=== PATIENT | male | born 1990 | race Caucasian/White ===

== ENCOUNTER 2020-06-30 06:48 | Outpatient (NON) | payer OTHER, SELFPAY ==
[2020-06-30 19:05] LABS: SARS-CoV-2 RNA PCR Negative
== END 2020-06-30 06:49 ==
PROVIDERS: PCP Family Medicine Adolescent Medicine; Visit Provider Family Medicine Adolescent Medicine
DX: Z20.828 Contact with and (suspected) exposure to other viral communicable diseases (principal); R09.89 Other specified symptoms and signs involving the circulatory and respiratory systems
CPT/HCPCS: 87635; C9803; U0003

== ENCOUNTER 2021-08-15 23:53 | Observation (INO) | payer OTHER, SELFPAY ==
--- NOTE | ~2021-08-15 | XR_ITS ---
EXAMINATION: XR chest 1V portable DATE: 08/16/2021 00:30 INDICATION: Shortness of breath and cough. COVID-19 positive. TECHNIQUE: A single frontal view of the chest was obtained. COMPARISON: Chest CT 08/16/2021 FINDINGS: There are patchy airspace opacities in the lungs bilaterally, worst in right upper lobe. No pleural effusion or pneumothorax. The heart size is normal. IMPRESSION: 1. Diffuse lung disease, worst in right upper lobe, consistent with COVID-19 pneumonia. Reviewed, dictated and finalized at location A. N PLANNER IMPRESSION: 1. Diffuse lung disease, worst in right upper lobe, consistent with COVID-19 pn eumonia.
--- NOTE | ~2021-08-15 | CT_ITS ---
EXAMINATION: CTA chest PE protocol DATE: 08/16/2021 02:07 INDICATION: Right upper lobe pneumonia. TECHNIQUE: Computed tomography angiography (CTA) of the chest was performed with 100 mL Omnipaque-350 intravenous contrast timed to evaluate the pulmonary arteries. Coronal maximum intensity projection 3D-reconstructions were created by the technologist. Automated exposure control and iterative reconst ruction technique were employed. The dose-length product was 502.59 mGy-cm. COMPARISON: Chest single view 08/16/2021 FINDINGS: There are patchy airspace opacities, groundglass opacities, crazy paving with air bronchogr ams involving all lobes, worst in right upper lobe. No pleural effusion. The heart size is normal. No pericardial effusion. There is no pulmonary embolus. There is mild splenomegaly. There is focal stea tosis in the liver adjacent to the falciform ligament. There is mild thoracic spondylosis. IMPRESSION: 1. No pulmonary embolism. Sensitivity is moderately decreased by motion artifact. 2. Diffuse lung disease, consistent with COVID-19 pneumonia. 3. Mild splenomegaly. Reviewed, dictated and finalized at location A. E DOG TRAINER IMPRESSION: 1. No pulmonary embolism. Sensitivity is moderately decreased by motion artifac t. 2. Diffuse lung disease, consistent with COVID-19 pneumonia. 3. Mild splenomegaly.
[2021-08-16] VITALS (26 sets, daily range): BP systolic 129–148; BP diastolic 78–104; PULSE 98–130; RESP 18–44; TEMP 36.3–38.3; O2SAT 94–99
[2021-08-16] MEDS: SODIUM CHLORIDE 0.9% IV 1,000 ML 999 ML IV CONT (00:42)
[2021-08-16] MEDS: DEXAMETHASONE SOD PHOS INJ 4 MG/ML VIAL 6 MG IV PUSH (00:43)
[2021-08-16 01:07] LABS: Basophils Percent Auto 0.2 % (0.2-1.2); Hematocrit 37.5 % (42.0-52.0); Hemoglobin 13.6 g/dL (14.0-18.0); Immature Granulocyte Absolute 0.07 K/mm3 (0.00-0.031); Immature Granulocyte Percent A 1.2 % (0-0.5); Lymphocytes Percent Auto 5.2 % (18.3-44.2); Mean Corpuscular HGB Conc 36.3 g/dl (32-36); Mean Corpuscular Hemoglobin 31.5 pg (26-34); Mean Corpuscular Volume 86.8 fl (80-100); Monocytes Absolute Auto 0.1 K/mm3 (0.1-0.6); Monocytes Percent Auto 1.7 % (2.6-8.5); Neutrophils Absolute Auto 5.3 K/mm3 (1.3-6.7); Neutrophils Percent Auto 91.7 % (45.5-73.1); Platelet Count Result 144 k/mm3 (150-375); Red Blood Count 4.32 M/mm3 (4.6-6.20); Red Cell Distribution Width 12.6 % (11.5-14.5); White Blood Count 5.8 K/mm3 (4.5-10.0)
[2021-08-16 01:16] LABS: Alanine Aminotransferase 97 U/L (4-50); Albumin Level 4.2 g/dL (3.5-5.1); Alkaline Phosphatase 82 U/L (38-126); Anion Gap 11 mmol/L (8-16); Aspartate Amino Transferase 104 U/L (17-59); Bilirubin,Total 0.6 mg/dL (0.2-1.3); Blood Urea Nitrogen 12 mg/dL (9-20); Calcium 8.4 mg/dL (8.4-10.2); Carbon Dioxide 24 mmol/L (22-30); Chloride 98 mmol/L (98-107); Estimated CRCL calculation 94 ml/min; Estimated Glomerular Filt Rate > 60; Glucose 118 mg/dL (65-110); Potassium 3.4 mmol/L (3.4-5.0); Sodium 133 mmol/L (137-145)
[2021-08-16 01:21] LABS: Lactic Acid Reflex 1.3 mmol/L (0.7-2.1)
--- NOTE | 2021-08-16 01:29 | ED.URI ---
HPI - URI/Sore Throat General Chief Complaint: Upper Respiratory Infection <MD Ryan Bates Last Filed: 08/16/21 01:35> Stated Complaint: cough, weakness <MD Ryan Bates Last Filed: 08/16/21 01:35> Time Seen by Provider: 08/16/21 00:12 <MD Ryan Bates Last Filed: 08/16/21 01:35> Source: patient <Skip Laurent MD - Last Filed: 08/16/21 01:35> Mode of arrival: ambulatory <MD Ryan Bates Last Filed: 08/16/21 01:35> Limitations: no limitations <MD Ryan Bates Last Filed: 08/16/21 01:35> History of Present Illness HPI Narrative: 30-year-old with no major medical problems here with complaints of cough shortness of breath, chest pain and fever for past 3 days. Patient states that he tested positive for Covid at home. He is not vaccinated against Covid <Skip Laurent MD - Last Filed: 08/16/21 01:35> MD elicited complaint: fever and nasal congestion <Skip Laurent MD - Last Filed: 08/16/21 01:35> Onset (ago): day(s) (3) <Skip Laurent MD - Last Filed: 08/16/21 01:35> Consistency: constant <MD Ryan Bates Last Filed: 08/16/21 01:35> Severity: moderate <MD Ryan Bates Last Filed: 08/16/21 01:35> Exacerbating factors: nothing <MD Ryan Bates Last Filed: 08/16/21 01:35> Relieving factors: nothing <MD Ryan Bates Last Filed: 08/16/21 01:35> Related Data Home Medications: Home Medications Medication Instructions Recorded Confirmed No Home Medications 08/16/21 <MD Ryan Bates Last Filed: 08/16/21 01:35> Allergies/Adverse Reactions: Allergies Allergy/AdvReac Type Severity Reaction Status Date / Time No Known Allergies Allergy Mild Verified 08/16/21 01:50 <MD Ryan Bates Last Filed: 08/16/21 01:35> Review of Systems Review of Systems: All systems reviewed & are unremarkable except as noted in HPI and below <Skip Laurent MD - Last Filed: 08/16/21 01:35> Constitutional: Constitutional: Reports no additional constitutional complaints <Skip Laurent MD - Last Filed: 08/16/21 01:35> Eyes: Eyes: Reports no additional eye complaints <Skip Laurent MD - Last Filed: 08/16/21 01:35> Cardiovascular: Cardiovascular: Reports no additional cardiovascular complaints <Skip Laurent MD - Last Filed: 08/16/21 01:35> Respiratory: Respiratory: Reports as per HPI <Skip Laurent MD - Last Filed: 08/16/21 01:35> Gastrointestinal: Gastrointestinal: Reports no additional gastrointestinal complaints <Skip Laurent MD - Last Filed: 08/16/21 01:35> Genitourinary: Genitourinary: Reports no additional male genitourinary complaints <Skip Laurent MD - Last Filed: 08/16/21 01:35> Musculoskeletal: Musculoskeletal: Reports no additional musculoskeletal complaints <Skip Laurent MD - Last Filed: 08/16/21 01:35> Exam Narrative: GENERAL: ill-appearing, well-nourished, and in no acute distress. HEAD: Normocephalic, atraumatic. EYES: PERRLA and EOMI. NECK: Supple. CHEST: Clear to auscultation. No respiratory distress. HEART: Tachycardic. No murmur heard. Normal peripheral pulses. ABDOMEN: Soft, nontender, nondistended, normal active bowel sounds. EXTREMITIES: Normal range of motion. No edema. SKIN: Warm, dry, no rash. NEURO: No focal deficits. Alert and oriented x3. PSYCH: Normal mood and affect. <Skip Laurent MD - Last Filed: 08/16/21 01:35> Course Course Emergency Course: Patient still remains tachycardic however now after 1 L of IV fluids, reviewed x-ray and lab work with the patient will admit him to the hospital as he still tach cardiac and his respiratory rate is 33. <Skip Laurent MD - Last Filed: 08/16/21 01:35> Vital Signs Vital signs: Vital Signs Temperature 36.9 C 08/16/21 00:00 Pulse Rate 109 H 08/16/21 00:00 Respiratory Rate 18 08/16/21 00:00 Blood Pressure 129/78 08/16/21 00:00 Pulse Oximetry 95 12/0
--- NOTE | 2021-08-16 01:49 | PC.NURSE ---
blood cultures drawn by tech at this time
[2021-08-16] MEDS: SODIUM CHLORIDE 0.9% IV 1,000 ML 125 ML IV CONT ×2 (01:50→09:56)
[2021-08-16] MEDS: ACETAMINOPHEN 500 MG TABLET 1000 MG PO (02:20)
--- NOTE | 2021-08-16 02:41 | PC.NURSE ---
Report received and care of pt assumed at this time.
--- NOTE | 2021-08-16 08:26 | ADMGEN ---
This patient, Yan Vázquez, was admitted to Virtual Bed 3rd Floor-2. Patient/family oriented to hospital policies and general routines including ID bracelet, bed and alarms, visiting hours, pain management, procedures, bathroom and other care routines, personal items, smoking policy, room service/diet, and visiting hours. Information on how to activate the Rapid Response Team has been discussed. Patient/Family are encouraged to report perceived risks to care and to ask questions if they do not understand what they are told or what they should do. Admission process done in ED with pt. Cooperated with all questions. Belonging, wallet and phone, will be kept on person. PT comfortable, no pain reported.
[2021-08-16] MEDS: ACETAMINOPHEN 325 MG TABLET 650 MG PO (11:05)
--- NOTE | 2021-08-16 12:43 | PM.SD2 ---
Same Day Admit/Disch: HPI History of Present Illness Chief complaint: COVID +, Right Lobe Pneumonia Narrative: Yan Vázquez is a 30 year old male with no medical problems, started having problems on Sunday with fever and cough and chest pain. Pt did home kit on Sunday and it was positive pt came into ED yesterday Sunday for full evaluation. Pt lives with and children.Pt works in factory. Pt is not vaccinated. Since admission pt has not needed oxygen. Pt is wanting to go home. CXR AND CT CHEST both show pneumonia. Covid test is positive. [facility] Family History Family History Grandparent Diabetes mellitus Father Parkinson disease Social History Social History Smoking status: Never smoker Second hand tobacco smoke exposure: No Alcohol intake: never Substance use type: marijuana Other substance usage details: on a rare occassion Spiritual care concerns: No Same Day Admit/Disch: Med Pre-admit Medications Home Medications Medication Instructions Recorded Confirmed Type No Home Medications 08/16/21 History Exam Const: General: tired appearing and other (persistent cough ) HENMT: Head: normocephalic Eyes: General: appearance normal, both eyes and all related structures Pupils: Equal, round and reactive pupils present Neck: Neck: supple Chest: Chest palpation & inspection: normal inspection of the chest Resp: Effort & Inspection: normal respiratory effort Auscultation: clear to auscultation bilaterally Cardio: Jugular venous distension: no JVD Rhythm: regular rhythm Heart sounds: S1 normal heart sound present and S2 normal heart sound present GI: Inspection: normal to inspection GI Palp: No abdominal tenderness, Yes Soft to palpation and No Tenderness to palpation present (GI) Auscultation: normal bowel sounds Skin: General skin exam: normal color and dry skin Neuro: Cranial nerves: Yes CN's II-XII intact bilaterally and Yes Equal, round and reactive pupils present Cognition (Neuro): normal cognition Speech: normal speech Motor exam (neuro): 5/5 motor strength present throughout Extrem: General: normal to inspection Psych: Appearance: grossly normal Mental Status: mental status grossly normal DS: Data Data Completed and Pending Labs on day of discharge: Labs from last 24 hours 1208/16/21 08/16/21 02:17 00:46 00:46 WBC RBC Hgb Hct MCV MCH MCHC RDW Plt Count MPV Immature Gran % (Auto) Neut % (Auto) Lymph % (Auto) Mcmullen % (Auto) Eos % (Auto) Baso % (Auto) Lymph # (Auto) Mcmullen # (Auto) Eos # (Auto) Baso # (Auto) Abs Immat Gran (auto) Absolute Neuts (auto) Absolute Nucleated RBC Nucleated RBC % Sodium 133 L Potassium 3.4 Chloride 98 Carbon Dioxide 24 Anion Gap 11 BUN 12 Creatinine 1.10 Estim Creat Clear Calc 94 Estimated GFR > 60 Glucose 118 H Lactic Acid 1.3 Calcium 8.4 Total Bilirubin 0.6 AST 104 H ALT 97 H Alkaline Phosphatase 82 Total Protein 8.0 Albumin 4.2 SARS-CoV-2 RNA (RT-PCR) Pending 08/16/21 00:46 WBC 5.8 RBC 4.32 L Hgb 13.6 L Hct 37.5 L MCV 86.8 MCH 31.5 MCHC 36.3 H RDW 12.6 Plt Count 144 L MPV 10.0 Immature Gran % (Auto) 1.2 H Neut % (Auto) 91.7 H Lymph % (Auto) 5.2 L Mcmullen % (Auto) 1.7 L Eos % (Auto) 0.0 Baso % (Auto) 0.2 Lymph # (Auto) 0.30 L Mcmullen # (Auto) 0.1 Eos # (Auto) 0.0 Baso # (Auto) 0.0 Abs Immat Gran (auto) 0.07 H Absolute Neuts (auto) 5.3 Absolute Nucleated RBC 0.0 Nucleated RBC % 0.0 Sodium Potassium Chloride Carbon Dioxide Anion Gap BUN Creatinine Estim Creat Clear Calc Estimated GFR Glucose Lactic Acid Calcium Total Bilirubin AST ALT Alkaline Phosphatase Total Protein Albumin SARS-CoV-2 RNA (RT-PCR)
[2021-08-16 20:28] LABS: SARS-CoV-2 RNA PCR Positive
== END 2021-08-16 14:20 | disposition home or self-care (01) ==
LOC: ANHED 08-16 02:09 → ANH3MEDSUR 08-16 10:52 → ANH2MED 08-18 10:22
PROVIDERS: Family Medicine; Admitting Provider Internal Medicine; Emergency Provider Emergency Medicine; PCP Family Medicine Adolescent Medicine; Visit Provider Family Medicine
DX: U07.1 COVID-19 (principal); J12.82 Pneumonia due to coronavirus disease 2019; Z28.3 Underimmunization status
CPT/HCPCS: 36415; 71045; 71275; 80053; 83605; 85025; 87040; 96361; 96365; 96366; 96374; 96375; 99285; A9270; C9803; G0378; J1100; J1956; J7030; Q9967; U0003; U0005

== ENCOUNTER 2021-09-22 14:13 | Outpatient (CLI) | payer OTHER, SELFPAY ==
--- NOTE | ~2021-09-22 | XR_ITS ---
XR chest 2V DATE: 09/22/2021 14:24 INDICATION: Covid 19 pneumonia TECHNIQUE: 2 views COMPARISON: 08/16/2021 CTA chest 08/16/2021 portable AP chest FINDINGS: There is mild residual infiltrate, atelectasis and/or scarring in the mid and lower lung zo alyson bilaterally, right greater than left, improved significantly, particularly at the right upper lob e, since 08/16/2021 Normal heart size. No hilar or mediastinal enlargement. No pleural effusion or pulmonary vascular con gestion or pneumothorax. IMPRESSION: Mild residual bilateral pulmonary infiltrate, atelectasis and/or scarring, right greater than left Reviewed, dictated and finalized at location J. SCHOOL COMBINATION TEACHER IMPRESSION: Mild residual bilateral pulmonary infiltrate, atelectasis and/or sc arring, right greater than left
== END 2021-09-22 14:14 ==
LOC: MICIMG 14:13
PROVIDERS: PCP Family Medicine Adolescent Medicine; Visit Provider Physician Assistant
DX: Z86.16 Personal history of COVID-19 (principal); R91.8 Other nonspecific abnormal finding of lung field
CPT/HCPCS: 71046

== ENCOUNTER 2021-11-23 14:39 | Outpatient (CLI) | payer BC, SELFPAY ==
--- NOTE | 2021-11-29 11:57 | WPDHOLTEREM ---
Holter/Event Monitor Holter/Event Monitor Date of procedure: 11/23/21 Holter/Event Procedure: 24 Hr Holter Monitor Indications: Palpitations Conclusion: 1. 24 hour holter monitor on 11/23/21. 2. Underlying rhythm is sinus rhythm. HR range 50-150 bpm; average HR 83 bpm. 3. No premature supraventricular complex. No supraventricular tachycardia. 4. There is one premature ventricular complex. No ventricular tachycardia. 5. No sinoatrial or atrioventricular blocks. No significant pauses greater than 2 seconds. 6. No symptoms available for correlation.
== END 2021-11-23 14:40 | disposition home or self-care (01) ==
LOC: ANHCARD 14:45
PROVIDERS: PCP Family Medicine Adolescent Medicine; Visit Provider Physician Assistant
DX: R00.2 Palpitations (principal); Z86.16 Personal history of COVID-19
CPT/HCPCS: 93225; 93226

== ENCOUNTER → 2022-02-09 16:09 | Outpatient (CLI) | payer BC, SELFPAY ==
--- NOTE | ~2022-02-09 | XR_ITS ---
XR chest 2V DATE: 02/09/2022 16:20 INDICATION: Shortness of breath TECHNIQUE: 2 views COMPARISON: 09/22/2021 2 view chest FINDINGS: Normal heart size. No hilar or mediastinal enlargement. No pulmonary infiltrate or consolid ation, pleural effusion or pulmonary vascular congestion or pneumothorax. IMPRESSION: No active cardiopulmonary disease Reviewed, dictated and finalized at location A.
== END ==
PROVIDERS: PCP Family Medicine Adolescent Medicine; Visit Provider Physician Assistant
DX: R06.02 Shortness of breath (principal)
CPT/HCPCS: 71046

== ENCOUNTER 2023-04-30 13:02 | Outpatient (CLI) | payer BC, SELFPAY ==
[2023-04-30 14:21] LABS: Hemoglobin 11.2 g/dL (14.0-18.0); Mean Corpuscular HGB Conc 33.9 g/dl (32-36); Mean Corpuscular Hemoglobin 30.1 pg (26-34); Mean Corpuscular Volume 88.7 fl (80-100); Mean Platelet Volume 10.6 fl (7.4-10.4); Platelet Count Result 302 k/mm3 (150-375); Red Blood Count 3.72 M/mm3 (4.6-6.20); Red Cell Distribution Width 12.5 % (11.5-14.5); White Blood Count 8.1 K/mm3 (4.5-10.0)
== END 2023-04-30 13:03 | disposition home or self-care (01) ==
PROVIDERS: PCP Family Medicine Adolescent Medicine; Visit Provider Family Medicine Adolescent Medicine
DX: K92.1 Melena (principal)
CPT/HCPCS: 36415; 85027

== ENCOUNTER 2023-05-02 08:05 | Inpatient (IN) | payer BC, SELFPAY ==
[2023-05-02] VITALS (12 sets, daily range): BP systolic 131–155; BP diastolic 86–98; PULSE 88–130; RESP 18–21; TEMP 36.4–36.8; O2SAT 100; BMI 26.0
--- NOTE | ~2023-05-02 | NM_ITS ---
EXAMINATION: NM [facility] DATE: 05/04/2023 12:14 INDICATION: Calf and S1 roots. TECHNIQUE: 16.6 mCi Tc 99m pertechnetate was administered intravenously. Scintigraphic images of the abdomen were obtained for one hour. COMPARISON: None. FINDINGS: There is no ectopic gastric mucosa to suggest a Meckel's diverticulum. IMPRESSION: 1. No evidence of a Meckel's diverticulum. Reviewed, dictated and finalized at location A.
[2023-05-02 08:28] LABS: Basophils Percent Auto 0.6 % (0.2-1.2); Eosinophils Percent Auto 0.6 % (0-4.4); Hematocrit 29.8 % (42.0-52.0); Hemoglobin 10.2 g/dL (14.0-18.0); Immature Granulocyte Absolute 0.04 K/mm3 (0.00-0.031); Immature Granulocyte Percent A 0.6 % (0-0.5); Lymphocytes Absolute Auto 1.25 K/mm3 (0.9-3.2); Lymphocytes Percent Auto 19.1 % (18.3-44.2); Mean Corpuscular HGB Conc 34.2 g/dl (32-36); Mean Corpuscular Hemoglobin 30.6 pg (26-34); Mean Corpuscular Volume 89.5 fl (80-100); Mean Platelet Volume 10.2 fl (7.4-10.4); Monocytes Absolute Auto 0.4 K/mm3 (0.1-0.6); Monocytes Percent Auto 5.5 % (2.6-8.5); Neutrophils Absolute Auto 4.8 K/mm3 (1.3-6.7); Neutrophils Percent Auto 73.6 % (45.5-73.1); Platelet Count Result 274 k/mm3 (150-375); Red Blood Count 3.33 M/mm3 (4.6-6.20); Red Cell Distribution Width 12.8 % (11.5-14.5); White Blood Count 6.6 K/mm3 (4.5-10.0)
[2023-05-02 08:37] LABS: Alanine Aminotransferase 26 U/L (6-50); Albumin Level 4.4 g/dL (3.5-5.1); Alkaline Phosphatase 67 U/L (38-126); Anion Gap 9 mmol/L (8-16); Aspartate Amino Transferase 32 U/L (17-59); Bilirubin,Total 0.5 mg/dL (0.2-1.3); Blood Urea Nitrogen 16 mg/dL (9-20); Calcium 8.8 mg/dL (8.4-10.2); Carbon Dioxide 22 mmol/L (22-30); Chloride 103 mmol/L (98-107); Estimated CRCL calculation 80 ml/min; Estimated Glomerular Filt Rate > 60; Glucose 90 mg/dL (65-110); Potassium 4.4 mmol/L (3.4-5.0); Sodium 134 mmol/L (137-145)
--- NOTE | 2023-05-02 08:42 | ED.GENADULT ---
HPI - General Adult General Chief complaint: GI Bleed Stated complaint: bloody stools Time Seen by Provider: 05/02/23 08:14 History of Present Illness HPI narrative: Patient is a 32-year-old male who presents ER with rectal bleeding. Ongoing for 5 days. Has history of infectious colitis so his PCP put him on ciprofloxacin. Patient reports continued bloody bowel movements since then. At onset patient did have what he felt like was a fever but has not had any since then. He is not on any blood thinners. No history of Crohn's disease or ulcerative colitis. He has no history of diverticula. He is not having any abdominal pain just cramping when he has bowel movement. Related Data Allergies Allergy/AdvReac Type Severity Reaction Status Date / Time doxycycline Allergy Mild acid reflux Verified 05/02/23 08:27 Review of Systems Review of Systems: All systems reviewed & are unremarkable except as noted in HPI and below Constitutional: Constitutional: Denies chills, Denies fatigue and Reports fever(s) Cardiovascular: Cardiovascular: Denies chest pain, Denies rapid heart rate and Denies radiating jaw, neck or arm pain Respiratory: Respiratory: Denies cough, Denies dyspnea and Denies wheezing Gastrointestinal: Gastrointestinal: Denies abdominal pain, Reports diarrhea, Denies nausea and Denies vomiting Comments: Positive for rectal bleeding Psychiatric: Psychiatric: Reports anxiety PMFSH Past Medical History Medical History (Updated 05/02/23 @ 09:49 by Toni Azevedo MD) History of fracture of clavicle PTSD (post-traumatic stress disorder) Surgical History Surgical History (Updated 05/02/23 @ 08:43 by Toni Azevedo MD) No history of previous surgery Family History Family History Grandparent Diabetes mellitus Cerebrovascular accident Father , Due to Covid Pneumonia Parkinson disease Pneumonia due to COVID-19 virus Social History Social History Smoking status: Never smoker Second hand tobacco smoke exposure: No Alcohol intake: never Substance use: never Other substance usage details: on a rare occassion Lack of Transportation: No Lack of Food: Never True Current Housing: I Have Housing Concerned About Future Housing: No Difficulty Paying Gas/Electric Bills: No Difficulty Paying for Meds: No Currently Unemployed: No Education: High School Diploma/GED Difficulty w/ Childcare or Family Care: No Living arrangements: with family Occupation/Education: occupation Gender identity (if verbalized by the patient): Male Sexual Orientation (if Verbalized by the Patient): Straight or Heterosexual Spiritual care concerns: No Agree to blood products: Yes Exam Narrative: GENERAL: Well-appearing, well-nourished, and in no acute distress. HEAD: Normocephalic, atraumatic. EYES: PERRL and EOMI. ENT: Mucous membranes moist. CHEST: Clear to auscultation. No respiratory distress. HEART: Tachycardic and regular.. Normal peripheral pulses. ABDOMEN: Soft, nontender, nondistended. Digital rectal exam with gross blood. No external hemorrhoids. EXTREMITIES: Normal range of motion. No edema. SKIN: Warm, dry, no rash. NEURO: Alert and oriented x3. PSYCH: Normal mood and affect. Course Vital Signs Vital signs: Vital Signs Temperature 97.5 F L 05/02/23 08:07 Pulse Rate 110 H 05/02/23 08:07 Respiratory Rate 18 05/02/23 08:07 Blood Pressure 150/98 H 05/02/23 08:07 Pulse Oximetry 100 05/02/23 08:07 Oxygen Delivery Room Air 05/02/23 08:07 Temperature 97.5 F L 05/02/23 08:07 Pulse Rate 93 05/02/23 09:13 Respiratory Rate 21 H 05/02/23 09:13 Blood Pressure 136/90 05/02/23 09:13 Pulse Oximetry 100 05/02/23 09:13 Oxygen Delivery Room Air 05/02/23 08:07 Medical Decision Making MDM Narrative Medical d
[2023-05-02] MEDS: SODIUM CHLORIDE 0.9% IV 1,000 ML 999 ML IV CONT (08:50)
[2023-05-02 08:55] LABS: Partial Thromboplastin Time 26.5 SECONDS (22.3-36.8)
[2023-05-02 09:11] LABS: Prothrombin Time 13.6 Seconds (11.1-14.7)
[2023-05-02] MEDS: PANTOPRAZOLE SODIUM IV 40 MG VIAL IV PUSH (09:59)
--- NOTE | 2023-05-02 10:42 | ADMGEN ---
This patient, Yan Vázquez, was admitted to [address] [place] [address] Room 330-01. Patient/family oriented to hospital policies and general routines including ID bracelet, bed and alarms, visiting hours, pain management, procedures, bathroom and other care routines, personal items, smoking policy, room service/diet, and visiting hours. Information on how to activate the Rapid Response Team has been discussed. Patient/Family are encouraged to report perceived risks to care and to ask questions if they do not understand what they are told or what they should do.
--- NOTE | 2023-05-02 12:28 | WPDGICN ---
Assessment and Plan Assessment and plan (1) GI bleed: Code(s): K92.2 - Gastrointestinal hemorrhage, unspecified Status: Acute Assessment and Plan: He has been passing blood for 5 days now. It is sometimes bright red other times darker. It has never been black or tarry. (2) Anemia due to blood loss, acute: Code(s): D62 - Acute posthemorrhagic anemia Status: Acute Assessment and Plan: Hemoglobin which was 14.9 last August and 13.4 in February is now down to 10.2. He was asking about blood transfusion. I told that we will watch his blood counts but at this point it does not appear that he will need transfusion. (3) Epigastric pain: Code(s): R10.13 - Epigastric pain Status: Acute Assessment and Plan: He had been having pain in the upper abdomen towards the left a while back. At that time he had been using anti-inflammatory medications. It was thought that he might have an ulcer but he did not have it investigated. Plan Will schedule for EGD and colonoscopy to be done tomorrow. GI Consult Note Consult date/time: 05/02/23 12:28 HPI: Yan Vázquez is a 32 year old male Who presented to the emergency room with complaints of bloody diarrhea beginning last week. On he felt nauseated for a while. He was better on Sunday but by evening of Sunday he was having cramping and then had a bowel movement which was bloody. This was preceded by having a sensation of being lightheaded and diaphoretic. Since then his bowel movements have all been bloody some darker than others but generally bright red. He is not having abdominal pain. He has not had a fever. His primary care physician started him on Cipro thinking this could be infection. He had not been traveling lately. He had not been on antibiotics. He occasionally gets a twinge of discomfort in the right lower quadrant. His appetite is good. This week he stayed on a liquid diet, being afraid to eat more than that. His hemoglobin was up to 14.9 last year and is now down to 10.2 Review of Systems Review of Systems: All systems reviewed & are unremarkable except as noted in HPI and below PMFSH Past Medical History Medical History History of fracture of clavicle PTSD (post-traumatic stress disorder) Surgical History Surgical History No history of previous surgery Family History Family History Grandparent Diabetes mellitus Cerebrovascular accident Father , Due to Covid Pneumonia Parkinson disease Pneumonia due to COVID-19 virus Social History Social History Years smoked: 1 Smoking status: Former smoker Second hand tobacco smoke exposure: No Alcohol intake: never Substance use: former Substance use type: marijuana Other substance usage details: on a rare occassion Last use: 04/23/2023 Lack of Transportation: No Lack of Food: Never True Current Housing: I Have Housing Concerned About Future Housing: No Difficulty Paying Gas/Electric Bills: No Difficulty Paying for Meds: No Currently Unemployed: No Education: High School Diploma/GED Difficulty w/ Childcare or Family Care: No Living arrangements: with family Occupation/Education: occupation Gender identity (if verbalized by the patient): Male Sexual Orientation (if Verbalized by the Patient): Straight or Heterosexual Spiritual care concerns: No Agree to blood products: Yes Meds Home Medications and Allergies Home Medications Medication Instructions Recorded Confirmed Type alprazolam 0.5 mg tablet 0.5 mg PO TID PRN anxiety #30 tabs 03/12/23 05/02/23 Rx ciprofloxacin HCl 500 mg tablet 500 mg PO BID #14 tabs 04/27/23 05/02/23 Rx Allergies Allergy/AdvReac Type Severity React
--- NOTE | 2023-05-02 12:35 | PM.IMHP ---
H&P: HPI History of Present Illness Date/Time: 05/02/23 12:35 Chief Complaint: Gl bleed Narrative: This is a 32 year old male patient that has had no past medical history. He stated that he has had a hx of anxiety and that he feel this is pretty much under control. The patient stated that he has been having this problem for at least 5 days. the patient was treated with infectious colitis with cipro. He has no hx of crohns disease. He showed me a picture of his maroon color. He denies any nausea at this point. The patient is not on any blood thinners. He is not having any abdominal pain or cramping at this time. H&H is 10.2 and 29.8. GI has been consulted. It was given IV fluids and pantoprazole. The patient is being admitted for observation status on the service of 05/02/2023 Review of Systems Review of Systems: All systems reviewed & are unremarkable except as noted in HPI and below Constitutional: Constitutional: Reports as per HPI and Reports no additional constitutional complaints Eyes: Eyes: Reports as per HPI and Reports no additional eye complaints ENT: Reports system reviewed and no additional complaints, except as documented and Reports Normal hearing present Cardiovascular: Cardiovascular: Reports no additional cardiovascular complaints Respiratory: Respiratory: Reports no additional respiratory complaints and Reports no additional respiratory complaints Gastrointestinal: Gastrointestinal: Reports as per HPI and Reports no additional gastrointestinal complaints Musculoskeletal: Musculoskeletal: Reports no additional musculoskeletal complaints Integumentary/Breasts: Skin/Breast: Reports system reviewed and no additional complaints, except as docu and Reports as per HPI Neurologic: Reports system reviewed and no additional complaints, except as documented, Reports as per HPI and Reports Normal hearing present Psychiatric: Psychiatric: Reports no additional psychiatric complaints and Reports as per HPI Endocrine: Endocrine: Reports no additional endocrine complaints Hematologic/Lymphatic: Hematologic/Lymphatic: Reports no additional hematologic/lymphatic complaints Allergic/Immunologic: Allergic/Immunologic: Reports no additional allergic/immunologic complaints [facility] Past Medical History Medical History History of fracture of clavicle PTSD (post-traumatic stress disorder) Surgical History Surgical History No history of previous surgery Family History Family History Grandparent Diabetes mellitus Cerebrovascular accident Father , Due to Covid Pneumonia Parkinson disease Pneumonia due to COVID-19 virus Social History Social History Years smoked: 1 Smoking status: Former smoker Second hand tobacco smoke exposure: No Alcohol intake: never Substance use: former Substance use type: marijuana Other substance usage details: on a rare occassion Last use: 04/23/2023 Lack of Transportation: No Lack of Food: Never True Current Housing: I Have Housing Concerned About Future Housing: No Difficulty Paying Gas/Electric Bills: No Difficulty Paying for Meds: No Currently Unemployed: No Education: High School Diploma/GED Difficulty w/ Childcare or Family Care: No Living arrangements: with family Occupation/Education: occupation Gender identity (if verbalized by the patient): Male Sexual Orientation (if Verbalized by the Patient): Straight or Heterosexual Spiritual care concerns: No Agree to blood products: Yes Meds Home Medications and Allergies Home Medications Medication Instructions Recorded Confirmed Type alprazolam 0.5 mg tablet 0.5 mg PO TID PRN anxiety #30 tabs 03/12/23 05/02/23 Rx ciprofloxacin HCl 500 mg tablet 500 mg PO BI
[2023-05-02 14:58] LABS: Hemoglobin 9.1 g/dL (14.0-18.0)
[2023-05-02] MEDS: BISACODYL 5 MG TABLET EC 10 MG PO ×2 (14:59→20:39)
[2023-05-02] MEDS: polyethylene glycoL 3350 238 GM BOTTLE PO (14:59)
[2023-05-02 21:09] LABS: Hematocrit 28.8 % (42.0-52.0); Hemoglobin 9.8 g/dL (14.0-18.0)
[2023-05-03] VITALS (12 sets, daily range): BP systolic 105–148; BP diastolic 72–99; PULSE 66–112; RESP 16–22; TEMP 36.2–37.1; O2SAT 100
[2023-05-03 02:51] LABS: Basophils Percent Auto 0.4 % (0.2-1.2); Eosinophils Absolute Auto 0.1 K/mm3 (0-0.3); Eosinophils Percent Auto 0.7 % (0-4.4); Hematocrit 26.1 % (42.0-52.0); Immature Granulocyte Absolute 0.04 K/mm3 (0.00-0.031); Immature Granulocyte Percent A 0.6 % (0-0.5); Lymphocytes Absolute Auto 1.64 K/mm3 (0.9-3.2); Lymphocytes Percent Auto 23.9 % (18.3-44.2); Mean Corpuscular HGB Conc 34.5 g/dl (32-36); Mean Corpuscular Hemoglobin 30.9 pg (26-34); Mean Corpuscular Volume 89.7 fl (80-100); Mean Platelet Volume 10.1 fl (7.4-10.4); Monocytes Absolute Auto 0.5 K/mm3 (0.1-0.6); Monocytes Percent Auto 7.7 % (2.6-8.5); Neutrophils Absolute Auto 4.6 K/mm3 (1.3-6.7); Neutrophils Percent Auto 66.7 % (45.5-73.1); Platelet Count Result 260 k/mm3 (150-375); Red Blood Count 2.91 M/mm3 (4.6-6.20); Red Cell Distribution Width 12.9 % (11.5-14.5); White Blood Count 6.9 K/mm3 (4.5-10.0)
[2023-05-03 03:17] LABS: Alanine Aminotransferase 22 U/L (6-50); Albumin Level 3.8 g/dL (3.5-5.1); Alkaline Phosphatase 56 U/L (38-126); Anion Gap 4 mmol/L (8-16); Aspartate Amino Transferase 38 U/L (17-59); Bilirubin,Total 0.3 mg/dL (0.2-1.3); Blood Urea Nitrogen 9 mg/dL (9-20); Calcium 8.4 mg/dL (8.4-10.2); Carbon Dioxide 24 mmol/L (22-30); Chloride 105 mmol/L (98-107); Estimated CRCL calculation 74 ml/min; Estimated Glomerular Filt Rate > 60; Glucose 104 mg/dL (65-110); Potassium 3.7 mmol/L (3.4-5.0); Sodium 133 mmol/L (137-145)
[2023-05-03] MEDS: BISACODYL 5 MG TABLET EC 10 MG PO (03:43)
[2023-05-03 08:07] LABS: Hematocrit 25.8 % (42.0-52.0); Hemoglobin 8.8 g/dL (14.0-18.0)
--- NOTE | 2023-05-03 10:15 | PM.IMPN ---
Progress Note: A&P Assessment and Plan (1) Anemia due to blood loss, acute: Code(s): D62 - Acute posthemorrhagic anemia Status: Acute Assessment and Plan: Presented to the ED with complaints of bloody bowel movements H/H 11.2/33.0 04/30/23 Currently stable at 8.8/25.8 Reported one bloody BM at 0300 this am Colonoscopy found bleeding in the Cecum EGD stable Continue to trend H/H Transfuse as indicated Continue Protonix PO BID Meckel scan ordered for the am (2) Anxiety: Code(s): F41.9 - Anxiety disorder, unspecified Status: Acute Assessment and Plan: Continue Xanax Trend mood Time Spent With Patient Time: 45 minutes Time with patient: Greater than 35 minutes Subjective Date/time seen: 05/03/23 1015 Interval history: 05/03/23 1015 Patient is laying in bed. He stated that he has not had any other bloody bowel movements since 3am this morning. He is not having any further dizziness or weakness. He is felling better and is hoping for discharge after the EGD colonoscopy. Colonoscopy did find some bleeding in the cecum. GI wants a Meckel's scan. Continue to trend H/H for now. Patient's family was in the room. He did give permission to chat about his care in front of his family and friends. 05/02/23? 12:35 This is a 32 year old male patient that has had no past medical history. He stated that he has had a hx of anxiety and that he feel this is pretty much under control. The patient stated that he has been having this problem for at least 5 days. the patient was treated with infectious colitis with cipro. He has no hx of crohns disease. He showed? me a picture of his maroon color. He denies any nausea at this point. The patient is not on any blood thinners.? He is not having any abdominal pain or cramping at this time.? H&H is 10.2 and 29.8.? GI has been consulted.? It was given IV fluids and pantoprazole.? The patient is being admitted for observation status on the service of 05/02/2023 Review of Systems Review of Systems: All systems reviewed & are unremarkable except as noted in HPI and below Exam Narrative: General: well-nourished, well-appearing 32-year-old male, sitting up in bed, comfortable, NARD Neuro: awake, alert and oriented x4, speech clear, no focal neuro deficits noted HEENMT: normocephalic, atraumatic, EOMI, sclerae anicteric, moist oral mucosa Respiratory: Clear to auscultation bilaterally without crackles, rhonchi or wheezes, nonlabored breathing Cardio: regular rate, regular rhythm with S1-S2 Abdomen: nondistended, normoactive bowel sounds, soft, nontender to palpation Extremities: no edema, erythema, or tenderness to palpation, DP pulses 2+ bilaterally Skin: no rashes or lesions, warm and dry Psych: appropriate mood and affect, judgment and insight intact Objective Data Vital Signs Vital Signs: Vital Signs - 24 hr 05/02/23 16:00 05/02/23 20:00 05/02/23 22:00 Temperature 97.8 F Pulse Rate 94 94 98 Respiratory Rate 21 H 18 Blood Pressure 139/88 Pulse Oximetry 100 100 Oxygen Delivery Room Air 05/02/23 20:00 05/03/23 00:00 05/03/23 04:00 Temperature Pulse Rate 106 H 81 94 Respiratory Rate Blood Pressure Pulse Oximetry Oxygen Delivery 05/03/23 06:00 05/03/23 12:42 05/03/23 13:46 Temperature 97.3 F L 98.8 F Pulse Rate 112 H 97 85 Respiratory Rate 18 16 18 Blood Pressure 139/99 H 142/93 H 105/72 Pulse Oximetry 100 100 100 Oxygen Delivery Room Air Room Air 05/03/23 13:56 Temperature Pulse Rate 87 Respiratory Rate 22 H Blood Pressure 106/72 Pulse Oximetry 100 Oxygen Delivery Room Air Intake/Output Intake/Output: Intake & Output 04/30/23 05/01/23 05/02/23 05/03/23 23:59 23:59 23:59 23:59 Intake Total 1250 50 Balance 1250 50 Meds/Results Medications: Active Medications Generic Name Dose Route Start Last Admin Trade Name Freq PRN Reason
--- NOTE | 2023-05-03 12:43 | PC.NURSE ---
To GI Lab per wheelchair, IV saline locked. Report given to MARISSA Canela.
[2023-05-03] MEDS: LACTATED RINGERS 1,000 ML 150 ML IV CONT (12:45)
--- NOTE | 2023-05-03 13:03 | WPDANESEPPF ---
Anes - Initial Pre Proc Eval Procedure: Operation Date: 05/03/23 13:30 Proposed Procedures p Esophagogastroduodenoscopy & Colonoscopy - John Hernandez MD Date/Time: 05/03/23 13:03 Surgeon: David Pre Op Diagnosis: gi bleeding Patient Data Age: 32 Gender: M Height: 1.78 m Weight: 82.3 kg Last Vital Signs Temp 37.1 C 05/03/23 12:42 Pulse 97 05/03/23 12:42 Resp 16 05/03/23 12:42 BP 142/93 H 05/03/23 12:42 Pulse Ox 100 05/03/23 12:42 O2 Del Method Room Air 05/03/23 12:42 Allergies Allergy/AdvReac Type Severity Reaction Status Date / Time doxycycline Allergy Mild acid reflux Verified 05/02/23 10:42 Home Medications Medication Instructions Recorded Confirmed Type alprazolam 0.5 mg tablet 0.5 mg PO TID PRN anxiety #30 tabs 03/12/23 05/02/23 Rx ciprofloxacin HCl 500 mg tablet 500 mg PO BID #14 tabs 04/27/23 05/02/23 Rx Laboratory Tests 05/02/23 05/02/23 05/03/23 14:47 21:02 02:28 WBC 6.9 K/mm3 (4.5-10.0) RBC 2.91 L M/mm3 (4.6-6.20) Hgb 9.1 L g/dL 9.8 L g/dL 9.0 L g/dL (14.0-18.0) (14.0-18.0) (14.0-18.0) Hct 27.0 L % 28.8 L % 26.1 L % (42.0-52.0) (42.0-52.0) (42.0-52.0) MCV 89.7 fl (80-100) MCH 30.9 pg (26-34) MCHC 34.5 g/dl (32-36) RDW 12.9 % (11.5-14.5) Plt Count 260 k/mm3 (150-375) MPV 10.1 fl (7.4-10.4) Immature Gran % (Auto) 0.6 H % (0-0.5) Neut % (Auto) 66.7 % (45.5-73.1) Lymph % (Auto) 23.9 % (18.3-44.2) [place] % (Auto) 7.7 % (2.6-8.5) Eos % (Auto) 0.7 % (0-4.4) Baso % (Auto) 0.4 % (0.2-1.2) Lymph # (Auto) 1.64 K/mm3 (0.9-3.2) [place] # (Auto) 0.5 K/mm3 (0.1-0.6) Eos # (Auto) 0.1 K/mm3 (0-0.3) Baso # (Auto) 0.0 K/mm3 (0.0-0.1) Abs Immat Gran (auto) 0.04 H K/mm3 (0.00-0.031) Absolute Neuts (auto) 4.6 K/mm3 (1.3-6.7) Absolute Nucleated RBC 0.0 K/mm3 (0.0-0.012) Nucleated RBC % 0.0 % (0.0-0.2) Sodium 133 L mmol/L (137-145) Potassium 3.7 mmol/L (3.4-5.0) Chloride 105 mmol/L (98-107) Carbon Dioxide 24 mmol/L (22-30) Anion Gap 4 L mmol/L (8-16) BUN 9 D mg/dL (9-20) Creatinine 1.30 mg/dL (0.7-1.3) Estim Creat Clear Calc 74 ml/min Estimated GFR > 60 (59 - ) Glucose 104 mg/dL (65-110) Calcium 8.4 mg/dL (8.4-10.2) Magnesium 2.0 mg/dL (1.6-2.3) Total Bilirubin 0.3 mg/dL (0.2-1.3) AST 38 U/L (17-59) ALT 22 U/L (6-50) Alkaline Phosphatase 56 U/L (38-126) Total Protein 7.0 g/dL (6.3-8.2) Albumin 3.8 g/dL (3.5-5.1) TSH (Reflex) 1.180 uIU/mL (0.465-4.68) 05/03/23 08:02 WBC RBC Hgb 8.8 L g/dL (14.0-18.0) Hct 25.8 L % (42.0-52.0) MCV MCH MCHC RDW Plt Count MPV Immature Gran % (Auto) Neut % (Auto) Lymph % (Auto) [place] % (Auto) Eos % (Auto) Baso % (Auto) Lymph # (Auto) [place] # (Auto) Eos # (Auto) Baso # (Auto) Abs Immat Gran (auto) Absolute Neuts (auto) Absolute Nucleated RBC Nucleated RBC % Sodium Potassium Chloride Carbon Dioxide Anion Gap BUN Creatinine Estim Creat Clear Calc Estimated GFR Glucose Calcium Magnesium Total Bilirubin AST ALT Alkaline Phosphatase Total Protein Albumin TSH (Reflex) Patient hx anesthesia problems: none Family hx anesthesia problems: none Results Review: All pre-operative results and documents have been reviewed as part of the pre-operative evaluation. PMFSH Past Me
--- NOTE | 2023-05-03 13:33 | SUR.OPER ---
EGD ended at 1327. Colonoscopy began at 1333.
[2023-05-03 15:09] LABS: Hematocrit 24.1 % (42.0-52.0); Hemoglobin 8.2 g/dL (14.0-18.0)
--- NOTE | 2023-05-03 15:14 | PC.NURSE ---
Returned from GI Lab. Report received from MARISSA Blanchard.
[2023-05-03 22:39] LABS: Hematocrit 25.5 % (42.0-52.0); Hemoglobin 8.7 g/dL (14.0-18.0)
[2023-05-04] VITALS (17 sets, daily range): BP systolic 106–144; BP diastolic 58–91; PULSE 71–106; RESP 16–20; TEMP 36.4–37.5; O2SAT 97–100
[2023-05-04 06:13] LABS: Basophils Percent Auto 0.8 % (0.2-1.2); Eosinophils Absolute Auto 0.1 K/mm3 (0-0.3); Eosinophils Percent Auto 1.2 % (0-4.4); Hematocrit 25.2 % (42.0-52.0); Hemoglobin 8.4 g/dL (14.0-18.0); Immature Granulocyte Absolute 0.01 K/mm3 (0.00-0.031); Immature Granulocyte Percent A 0.2 % (0-0.5); Lymphocytes Absolute Auto 1.07 K/mm3 (0.9-3.2); Lymphocytes Percent Auto 21.7 % (18.3-44.2); Mean Corpuscular HGB Conc 33.3 g/dl (32-36); Mean Corpuscular Hemoglobin 30.4 pg (26-34); Mean Corpuscular Volume 91.3 fl (80-100); Mean Platelet Volume 10.3 fl (7.4-10.4); Monocytes Absolute Auto 0.4 K/mm3 (0.1-0.6); Monocytes Percent Auto 7.5 % (2.6-8.5); Neutrophils Absolute Auto 3.4 K/mm3 (1.3-6.7); Neutrophils Percent Auto 68.6 % (45.5-73.1); Platelet Count Result 251 k/mm3 (150-375); Red Blood Count 2.76 M/mm3 (4.6-6.20); Red Cell Distribution Width 13.8 % (11.5-14.5); White Blood Count 4.9 K/mm3 (4.5-10.0)
[2023-05-04 06:26] LABS: Alanine Aminotransferase 25 U/L (6-50); Albumin Level 3.9 g/dL (3.5-5.1); Alkaline Phosphatase 57 U/L (38-126); Anion Gap 4 mmol/L (8-16); Aspartate Amino Transferase 29 U/L (17-59); Bilirubin,Total 0.4 mg/dL (0.2-1.3); Blood Urea Nitrogen 9 mg/dL (9-20); Calcium 8.5 mg/dL (8.4-10.2); Carbon Dioxide 27 mmol/L (22-30); Chloride 103 mmol/L (98-107); Estimated CRCL calculation 74 ml/min; Estimated Glomerular Filt Rate > 60; Glucose 96 mg/dL (65-110); Potassium 3.8 mmol/L (3.4-5.0); Sodium 134 mmol/L (137-145)
--- NOTE | 2023-05-04 06:45 | WPDGIPROGNO ---
Progress Note: A&P Assessment and Plan (1) GI bleed: Code(s): K92.2 - Gastrointestinal hemorrhage, unspecified Status: Acute Assessment and Plan: He has been passing blood for 5 days now. It is sometimes bright red other times darker. It has never been black or tarry. 05/04/2023 EGD was unremarkable except for focal gastritis. Also there was blood seen in the colon and terminal ileum but no colonic lesions explain bleeding. He has had more bloody stools during the night and this morning. I will schedule him for a Meckel's scan to be done as soon as possible. If negative, will then proceed to perform small-bowel enteroscopy. (2) Anemia due to blood loss, acute: Code(s): D62 - Acute posthemorrhagic anemia Status: Acute Assessment and Plan: Hemoglobin which was 14.9 last August and 13.4 in February is now down to 10.2. He was asking about blood transfusion. I told that we will watch his blood counts but at this point it does not appear that he will need transfusion. hemoglobin continues to drop. Discussed with hospitalist. He will receive 1 unit of blood today. (3) Epigastric pain: Code(s): R10.13 - Epigastric pain Status: Acute Assessment and Plan: He had been having pain in the upper abdomen towards the left a while back. At that time he had been using anti-inflammatory medications. It was thought that he might have an ulcer but he did not have it investigated. Plan Meckel scan this morning. Possible small bowel enteroscopy. Subjective Date/time seen: 05/04/23 06:45 following his colonoscopy and EGD yesterday he had no bowel movements until late in the evening. Then he passed 1 that had some darker blood. This morning he has had 2 more bowel movements. One with a significant amount of bright red blood in the last with some mucousy stool and some pink blood. He also noted that his heart rate jumped up when he got up to go to the bathroom. Nursing staff confirms that his heart rate was about 170 at that time. Exam Const: General: cooperative and healthy appearing Orientation/consciousness: patient oriented x3 HENMT: Head: normal to inspection Ears: hearing grossly normal bilaterally Mouth: Yes Normal oral and palatal mucosa present Eyes: General: appearance normal, both eyes and all related structures Neck: Neck: normal visual inspection Chest: Chest palpation & inspection: normal inspection of the chest Resp: Effort & Inspection: normal respiratory effort Auscultation: clear to auscultation bilaterally Cardio: Rate: regular rate Rhythm: regular rhythm GI: Inspection: normal to inspection Auscultation: normal bowel sounds Skin: General skin exam: normal color and no jaundice Neuro: General: patient oriented x3 Speech: normal speech Objective Data Vital Signs Vital Signs: Vital Signs - 24 hr 05/03/23 12:42 05/03/23 13:46 05/03/23 13:56 Temperature 37.1 C Pulse Rate 97 85 87 Respiratory Rate 16 18 22 H Blood Pressure 142/93 H 105/72 106/72 Pulse Oximetry 100 100 100 Oxygen Delivery Room Air Room Air Room Air 05/03/23 14:35 05/03/23 08:00 05/03/23 12:00 Temperature 36.2 C L Pulse Rate 66 106 H 81 Respiratory Rate 16 Blood Pressure 132/87 Pulse Oximetry 100 Oxygen Delivery 05/03/23 16:00 05/03/23 20:00 05/03/23 22:00 Temperature 36.6 C Pulse Rate 79 104 H Respiratory Rate 16 Blood Pressure 148/92 H Pulse Oximetry 100 Oxygen Delivery Room Air 05/04/23 06:00 05/03/23 20:00 05/04/23 00:00 Temperature 36.4 C Pulse Rate 97 85 71 Respiratory Rate 16 Blood Pressure 121/70 Pulse Oximetry 100 Oxygen Delivery 05/04/23 04:00 Temperature Pulse Rate 85 Respiratory Rate Blood Pressure Pulse Oximetry Oxygen Delivery Intake/Output Intake/Output: Intake & Output 05/01/23 05/02/23 05/03/23 05/04/23 23:59 23:59 23:59 23:59 Intake Total 1250 410 Balance 1250 410
--- NOTE | 2023-05-04 06:52 | PC.NURSE ---
Spoke with Dr. Hayes r/t patient having tachycardia (150's-170's) when up in room. New orders received for Cardiology consult.
--- NOTE | 2023-05-04 08:00 | PM.IMPN ---
Progress Note: A&P Assessment and Plan (1) Acute GI bleeding: Code(s): K92.2 - Gastrointestinal hemorrhage, unspecified Status: Acute Assessment and Plan: Notable bloody BMs for several days H/H on trend Reported 2-3 very large bright red bowel movements this am GI on board Meckel scan ordered EGD negative Colonoscopy found bleeding in the cecum Continue to trend H/H (2) Anemia due to blood loss, acute: Code(s): D62 - Acute posthemorrhagic anemia Status: Acute Assessment and Plan: Presented to the ED with complaints of bloody bowel movements symptomatic with lightheadedness, dizziness, weakness, palor H/H 11.2/33.0 04/30/23 H/H down to 7.8/22.8 Reported large blood bowel movement last night and this morning Colonoscopy found bleeding in the Cecum EGD stable Continue to trend H/H Transfuse as indicated Continue Protonix BID change to IV Meckel scan will determine if rescoping is a possibility (3) Symptomatic anemia: Code(s): D64.9 - Anemia, unspecified Status: Acute Assessment and Plan: Related to number 2 Lightheaded, dizzy Give one unit of PRBC Start IV fluids (4) Anxiety: Code(s): F41.9 - Anxiety disorder, unspecified Status: Acute Assessment and Plan: Continue Xanax Trend mood Time Spent With Patient Time: 59 minutes Time with patient: Greater than 35 minutes Subjective Date/time seen: 05/04/23 08:00 Interval history: 05/04/23 0800 Patient is not doing as well as yesterday. Patient stated that he did really well last night and was feeling really good. Patient stated that he had 2-3 bowel movements overnight that were bloody in nature and this morning's had multiple bowel movements that did display large amounts of red blood. He is also experiencing some lower abdominal pain. He is very lightheaded and stated that he is fairly weak. He did state the last bowel movement he almost passed out. H&H was redrawn which came back 7.8/22.8. Dr. Hernandez was contacted as well will await Meckel scan at this time which should determine if the patient needs to go back for colonoscopy. He denies any chest pain, shortness a breath, nausea, vomiting. It was also noted that the patient did get a heart rate of 170. Will give patient 1 unit of blood and start IV fluids. 05/03/23 1015 Patient is laying in bed. He stated that he has not had any other bloody bowel movements since 3am this morning. He is not having any further dizziness or weakness. He is felling better and is hoping for discharge after the EGD colonoscopy. Colonoscopy did find some bleeding in the cecum. GI wants a Meckel's scan. Continue to trend H/H for now. Patient's family was in the room. He did give permission to chat about his care in front of his family and friends. 05/02/23? 12:35 This is a 32 year old male patient that has had no past medical history. He stated that he has had a hx of anxiety and that he feel this is pretty much under control. The patient stated that he has been having this problem for at least 5 days. the patient was treated with infectious colitis with cipro. He has no hx of crohns disease. He showed? me a picture of his maroon color. He denies any nausea at this point. The patient is not on any blood thinners.? He is not having any abdominal pain or cramping at this time.? H&H is 10.2 and 29.8.? GI has been consulted.? It was given IV fluids and pantoprazole.? The patient is being admitted for observation status on the service of 05/02/2023 Review of Systems Review of Systems: All systems reviewed & are unremarkable except as noted in HPI and below Exam Narrative: General: well-nourished, ill tired-appearing 32-year-old male, laying in bed, comfortable, NARD Neuro: awake, lethargic, alert and oriented x4, speech clear, no focal neuro deficits noted HEENMT:
[2023-05-04 08:40] LABS: Hematocrit 22.8 % (42.0-52.0); Hemoglobin 7.8 g/dL (14.0-18.0)
[2023-05-04] MEDS: SODIUM CHLORIDE 0.9% IV 1,000 ML 100 ML IV CONT (09:36)
[2023-05-04] MEDS: SODIUM CHLORIDE 0.9% IV 250 ML 30 ML IV CONT (12:22)
--- NOTE | 2023-05-04 12:50 | PC.NURSE ---
To GI lab via [facility].
[2023-05-04] MEDS: LACTATED RINGERS 1,000 ML 150 ML IV CONT (12:59)
--- NOTE | 2023-05-04 12:59 | WPDANESEPPF ---
Anes - Initial Pre Proc Eval Procedure: Operation Date: 05/03/23 13:30 Proposed Procedures p Esophagogastroduodenoscopy & Colonoscopy - John Hernandez MD Operation Date: 05/04/23 13:30 Proposed Procedures p Esophagogastroduodenoscopy - John Hernandez MD Date/Time: 05/04/23 12:59 Surgeon: Radha Rodríguez MD Pre Op Diagnosis: gi bleeding Patient Data Age: 32 Gender: M Height: 1.78 m Weight: 82.3 kg Last Vital Signs Temp 36.9 C 05/04/23 12:54 Pulse 106 H 05/04/23 12:54 Resp 18 05/04/23 12:54 BP 143/91 H 05/04/23 12:54 Pulse Ox 100 05/04/23 12:54 O2 Del Method Room Air 05/04/23 12:54 Allergies Allergy/AdvReac Type Severity Reaction Status Date / Time doxycycline Allergy Mild acid reflux Verified 05/02/23 10:42 Home Medications Medication Instructions Recorded Confirmed Type alprazolam 0.5 mg tablet 0.5 mg PO TID PRN anxiety #30 tabs 03/12/23 05/02/23 Rx ciprofloxacin HCl 500 mg tablet 500 mg PO BID #14 tabs 04/27/23 05/02/23 Rx Laboratory Tests 05/02/23 05/03/23 05/03/23 08:18 15:02 22:22 WBC RBC Hgb 8.2 L g/dL 8.7 L g/dL (14.0-18.0) (14.0-18.0) Hct 24.1 L % 25.5 L % (42.0-52.0) (42.0-52.0) MCV MCH MCHC RDW Plt Count MPV Immature Gran % (Auto) Neut % (Auto) Lymph % (Auto) [place] % (Auto) Eos % (Auto) Baso % (Auto) Lymph # (Auto) [place] # (Auto) Eos # (Auto) Baso # (Auto) Abs Immat Gran (auto) Absolute Neuts (auto) Absolute Nucleated RBC Nucleated RBC % Sodium Potassium Chloride Carbon Dioxide Anion Gap BUN Creatinine Estim Creat Clear Calc Estimated GFR Glucose Calcium Magnesium Total Bilirubin AST ALT Alkaline Phosphatase Total Protein Albumin Blood Type O Positive Antibody Screen Negative Crossmatch See Detail 05/04/23 05/04/23 05:40 08:25 WBC 4.9 K/mm3 (4.5-10.0) RBC 2.76 L M/mm3 (4.6-6.20) Hgb 8.4 L g/dL 7.8 L g/dL (14.0-18.0) (14.0-18.0) Hct 25.2 L % 22.8 L % (42.0-52.0) (42.0-52.0) MCV 91.3 fl (80-100) MCH 30.4 pg (26-34) MCHC 33.3 g/dl (32-36) RDW 13.8 % (11.5-14.5) Plt Count 251 k/mm3 (150-375) MPV 10.3 fl (7.4-10.4) Immature Gran % (Auto) 0.2 % (0-0.5) Neut % (Auto) 68.6 % (45.5-73.1) Lymph % (Auto) 21.7 % (18.3-44.2) [place] % (Auto) 7.5 % (2.6-8.5) Eos % (Auto) 1.2 % (0-4.4) Baso % (Auto) 0.8 % (0.2-1.2) Lymph # (Auto) 1.07 K/mm3 (0.9-3.2) [place] # (Auto) 0.4 K/mm3 (0.1-0.6) Eos # (Auto) 0.1 K/mm3 (0-0.3) Baso # (Auto) 0.0 K/mm3 (0.0-0.1) Abs Immat Gran (auto) 0.01 K/mm3 (0.00-0.031) Absolute Neuts (auto) 3.4 K/mm3 (1.3-6.7) Absolute Nucleated RBC 0.0 K/mm3 (0.0-0.012) Nucleated RBC % 0.0 % (0.0-0.2) Sodium 134 L mmol/L (137-145) Potassium 3.8 mmol/L (3.4-5.0) Chloride 103 mmol/L (98-107) Carbon Dioxide 27 mmol/L (22-30) Anion Gap 4 L mmol/L (8-16) BUN 9 mg/dL (9-20) Creatinine 1.30 mg/dL (0.7-1.3) Estim Creat Clear Calc 74 ml/min Estimated GFR > 60 (59 - ) Glucose 96 mg/dL (65-110) Calcium 8.5 mg/dL (8.4-10.2) Magnesium 2.0 mg/dL (1.6-2.3) Total Bilirubin 0.4 mg/dL (0.2-1.3) AST 29 U/L (17-59) ALT 25 U/L (6-50) Alkaline Phosphatase 57 U/L (38-126) T
--- NOTE | 2023-05-04 13:17 | SUR.OPER ---
1315 EGD scope end 1317 COLONOSCOPE START
--- NOTE | 2023-05-04 13:47 | P.PNAN_ITS ---
Anes - Prog Note Post-Op Date/Time: 05/04/23 13:47 Cardiovascular status: normal Respiratory status: normal Airway patency: baseline Mental status: baseline Post-Op hydration status: normal Vital Signs: Last Vital Signs Temp 98.4 F 05/04/23 12:54 Pulse 89 05/04/23 13:39 Resp 16 05/04/23 13:39 BP 106/58 L 05/04/23 13:39 Pulse Ox 97 05/04/23 13:39 O2 Del Method Room Air 05/04/23 13:39 Pain Score (VAS): none per family. Pt at procedure and above assessment per family I/O: Intake & Output 05/03/23 05/04/23 05/04/23 23:59 07:59 15:59 Intake Total 360 0 Balance 360 0 Laboratory Tests 05/04/23 08:25 05/04/23 05:40 05/02/23 05/03/23 05/03/23 08:18 15:02 22:22 WBC RBC Hgb 8.2 L 8.7 L Hct 24.1 L 25.5 L MCV MCH MCHC RDW Plt Count MPV Immature Gran % (Auto) Neut % (Auto) Lymph % (Auto) [place] % (Auto) Eos % (Auto) Baso % (Auto) Lymph # (Auto) [place] # (Auto) Eos # (Auto) Baso # (Auto) Abs Immat Gran (auto) Absolute Neuts (auto) Absolute Nucleated RBC Nucleated RBC % Sodium Potassium Chloride Carbon Dioxide Anion Gap BUN Creatinine Estim Creat Clear Calc Estimated GFR Glucose Calcium Magnesium Total Bilirubin AST ALT Alkaline Phosphatase Total Protein Albumin Blood Type O Positive Antibody Screen Negative Crossmatch See Detail 05/04/23 05/04/23 05:40 08:25 WBC 4.9 RBC 2.76 L Hgb 8.4 L 7.8 L Hct 25.2 L 22.8 L MCV 91.3 MCH 30.4 MCHC 33.3 RDW 13.8 Plt Count 251 MPV 10.3 Immature Gran % (Auto) 0.2 Neut % (Auto) 68.6 Lymph % (Auto) 21.7 [place] % (Auto) 7.5 Eos % (Auto) 1.2 Baso % (Auto) 0.8 Lymph # (Auto) 1.07 [place] # (Auto) 0.4 Eos # (Auto) 0.1 Baso # (Auto) 0.0 Abs Immat Gran (auto) 0.01 Absolute Neuts (auto) 3.4 Absolute Nucleated RBC 0.0 Nucleated RBC % 0.0 Sodium 134 L Potassium 3.8 Chloride 103 Carbon Dioxide 27 Anion Gap 4 L BUN 9 Creatinine 1.30 Estim Creat Clear Calc 74 Estimated GFR > 60 Glucose 96 Calcium 8.5 Magnesium 2.0 Total Bilirubin 0.4 AST 29 ALT 25 Alkaline Phosphatase 57 Total Protein 7.0 Albumin 3.9 Blood Type Antibody Screen Crossmatch Post-procedural complaints: none Patient Feedback: Patient satisfied with anesthetic care.
--- NOTE | 2023-05-04 14:10 | PC.NURSE ---
Back from GI Lab via stretcher.
--- NOTE | 2023-05-04 15:38 | PM.CNCAR ---
Assessment and Plan Assessment and plan (1) Acute GI bleeding: Code(s): K92.2 - Gastrointestinal hemorrhage, unspecified Status: Acute (2) Symptomatic anemia: Code(s): D64.9 - Anemia, unspecified Status: Acute Plan 32-year-old man with physiologic sinus tachycardia in response to significant GI bleeding and anemia. This is a physiologic rather than a pathological arrhythmia. Will follow this with you while he is in the hospital. He does have a soft systolic flow murmur which is the result of hyperdynamic contractility again as a compensatory mechanism with blood loss and anemia. Tarik Monzon MD [facility] History of Present Illness History of Present Illness Consult date/time: 05/04/23 15:38 Reason For Visit: gi bleeding Narrative: This is a 32-year-old patient we were requested to see today because of tachycardia. The patient was seen in his room along with his family. He is unknown to me prior to this consultation. He has no previous cardiovascular history and no serious known medical problems. He says he was treated for a significant COVID 19 infection about 2 years ago but after this he has been doing well. He came into the hospital couple of days ago here with evidence of GI bleeding. This started last week on Sunday he noticed some dark or maroon-colored stools. Primary care physician follow this as an outpatient it persisted into the ER earlier this week any came to the hospital. He was significantly GI bleeding and had dropped his hemoglobin down to 7.8. He has undergone upper and lower endoscopy as well as a nuclear medicine scan. 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 In any event it was noticed while he is in the hospital that he is becoming tachycardic at times. The rhythm telemetry appears to be sinus tachycardia. This occurred earlier today and last night when he was standing up. We have been asked to see him at this time in consultation. I do not see any recordings of any pathological arrhythmias. He is relatively comfortable at this afternoon lying in bed visiting his family. At the moment there is no active bleeding. It looks like 1 of the AVMs or possibly more than 1 of them were cauterized in the GI lab. Review of Systems Constitutional: Constitutional: Reports no additional constitutional complaints Eyes: Eyes: Reports no additional eye complaints ENT: Reports system reviewed and no additional complaints, except as documented Cardiovascular: Cardiovascular: Reports no additional cardiovascular complaints Respiratory: Respiratory: Reports no additional respiratory complaints Gastrointestinal: Gastrointestinal: Reports as per HPI Comments: Dark maroon-colored stools Musculoskeletal: Musculoskeletal: Reports no additional musculoskeletal complaints Integumentary/Breasts: Skin/Breast: Reports system reviewed and no additional complaints, except as docu Neurologic: Reports system reviewed and no additional complaints, except as documented Endocrine: Endocrine: Reports no additional endocrine complaints Hematologic/Lymphatic: Hematologic/Lymphatic: Reports no additional hematologic/lymphatic complaints Allergic/Immunologic: Allergic/Immunologic: Reports no additional allergic/immunologic complaints [facility] Past Medical History Medical History History of fracture of clavicle PTSD (post-traumatic stress disorder) Surgical History Surgical History No history of previous surgery Family History Family History Grandparent Diabetes mellitus Cerebrovascular accident Father , Due to Covid Pneumonia Parkinson disease Pneumonia due to COVID-19 virus Social History Social History Years smoked:
[2023-05-04 20:52] LABS: Hematocrit 24.3 % (42.0-52.0); Hemoglobin 8.3 g/dL (14.0-18.0)
[2023-05-05] VITALS: PULSE 75
[2023-05-05] MEDS: SODIUM CHLORIDE 0.9% IV 1,000 ML 100 ML IV CONT
[2023-05-05 01:54] LABS: Basophils Percent Auto 0.5 % (0.2-1.2); Eosinophils Percent Auto 0.7 % (0-4.4); Hematocrit 24.8 % (42.0-52.0); Hemoglobin 8.3 g/dL (14.0-18.0); Immature Granulocyte Absolute 0.11 K/mm3 (0.00-0.031); Immature Granulocyte Percent A 1.8 % (0-0.5); Lymphocytes Absolute Auto 1.45 K/mm3 (0.9-3.2); Lymphocytes Percent Auto 24.3 % (18.3-44.2); Mean Corpuscular HGB Conc 33.5 g/dl (32-36); Mean Corpuscular Hemoglobin 30.4 pg (26-34); Mean Corpuscular Volume 90.8 fl (80-100); Mean Platelet Volume 9.9 fl (7.4-10.4); Monocytes Absolute Auto 0.4 K/mm3 (0.1-0.6); Monocytes Percent Auto 6.7 % (2.6-8.5); Neutrophils Absolute Auto 3.9 K/mm3 (1.3-6.7); Platelet Count Result 224 k/mm3 (150-375); Red Blood Count 2.73 M/mm3 (4.6-6.20)
[2023-05-05 02:03] LABS: Alanine Aminotransferase 21 U/L (6-50); Albumin Level 3.5 g/dL (3.5-5.1); Alkaline Phosphatase 47 U/L (38-126); Anion Gap 4 mmol/L (8-16); Aspartate Amino Transferase 27 U/L (17-59); Bilirubin,Total 0.4 mg/dL (0.2-1.3); Blood Urea Nitrogen 10 mg/dL (9-20); Calcium 7.9 mg/dL (8.4-10.2); Carbon Dioxide 24 mmol/L (22-30); Chloride 106 mmol/L (98-107); Estimated CRCL calculation 80 ml/min; Estimated Glomerular Filt Rate > 60; Glucose 85 mg/dL (65-110); Magnesium 1.9 mg/dL (1.6-2.3); Potassium 3.5 mmol/L (3.4-5.0); Sodium 134 mmol/L (137-145)
[2023-05-05 04:00] VITALS: PULSE 95
[2023-05-05 06:00] VITALS: BP 127/68; PULSE 111; RESP 16; TEMP 37.3; O2SAT 100
[2023-05-05 08:00] VITALS: PULSE 82
--- NOTE | 2023-05-05 08:43 | WPDGIPROGNO ---
Progress Note: A&P Assessment and Plan (1) GI bleed: Code(s): K92.2 - Gastrointestinal hemorrhage, unspecified Status: Acute Assessment and Plan: He has been passing blood for 5 days now. It is sometimes bright red other times darker. It has never been black or tarry. 05/04/2023 EGD was unremarkable except for focal gastritis. Also there was blood seen in the colon and terminal ileum but no colonic lesions explain bleeding. He has had more bloody stools during the night and this morning. I will schedule him for a Meckel's scan to be done as soon as possible. If negative, will then proceed to perform small-bowel enteroscopy. 05/05/23 no further signs of bleeding. He had a tiny bowel movement this morning with a few dark flakes but no blood. Hemoglobin is stable at 8.3. Will recheck 1 more this morning. (2) Anemia due to blood loss, acute: Code(s): D62 - Acute posthemorrhagic anemia Status: Acute Assessment and Plan: Hemoglobin which was 14.9 last August and 13.4 in February is now down to 10.2. He was asking about blood transfusion. I told that we will watch his blood counts but at this point it does not appear that he will need transfusion. hemoglobin continues to drop. Discussed with hospitalist. He will receive 1 unit of blood today. Stable now at 8.3 (3) Epigastric pain: Code(s): R10.13 - Epigastric pain Status: Acute Assessment and Plan: He had been having pain in the upper abdomen towards the left a while back. At that time he had been using anti-inflammatory medications. It was thought that he might have an ulcer but he did not have it investigated. Plan Meckel scan this morning. Possible small bowel enteroscopy. 05/05/2023 Meckel scan was negative. Repeat EGD and small-bowel enteroscopy yesterday negative except that there was an AVM where previously I had seen I would look like a area of gastritis with minute erosions. The AVM was not actively bleeding but it was cauterized with the argon plasma. It is possible he has additional AVMs in the small bowel. I will arrange an outpatient capsule endoscopy when we can get approval by his insurance company. ( Cannot be done on in patients, or on weekends) will recheck 1 more his H&H. If stable he can be discharged. Subjective Date/time seen: 05/05/23 08:43 no further signs of bleeding. Hemoglobin is holding at 8.3. He is not having any pain is tolerating his diet. I told that I think he could be discharged today. He was asking if he should take a week or so off work. I do not think that will be necessary. Exam Const: General: cooperative and healthy appearing Orientation/consciousness: patient oriented x3 HENMT: Head: normal to inspection Ears: hearing grossly normal bilaterally Mouth: Yes Normal oral and palatal mucosa present Eyes: General: appearance normal, both eyes and all related structures Neck: Neck: normal visual inspection Chest: Chest palpation & inspection: normal inspection of the chest Resp: Effort & Inspection: normal respiratory effort Auscultation: clear to auscultation bilaterally Cardio: Rate: regular rate Rhythm: regular rhythm GI: Inspection: normal to inspection Auscultation: normal bowel sounds Skin: General skin exam: normal color and no jaundice Neuro: General: patient oriented x3 Speech: normal speech Objective Data Vital Signs Vital Signs: Vital Signs - 24 hr 05/04/23 12:38 05/04/23 12:54 05/04/23 12:54 Temperature 37.0 C 36.9 C Pulse Rate 105 H 106 H 106 H Respiratory Rate 16 18 18 Blood Pressure 136/87 143/91 H 143/91 H Pulse Oximetry 100 100 100 Oxygen Delivery Room Air 05/04/23 13:29 05/04/23 13:39 05/04/23 13:49 Temperature Pulse Rate 97 89 105 H Respiratory Rate 16 16 20 Blood Pressure 116/65 106/58 L 119/80 Pulse Oximetry 98 97 100 Oxygen Delivery Room Air Room Air Room Air 05/04/23 13:39 05/04/23 14:37 05/04/23
[2023-05-05 09:24] LABS: Hematocrit 23.2 % (42.0-52.0); Hemoglobin 7.7 g/dL (14.0-18.0); Mean Corpuscular HGB Conc 33.2 g/dl (32-36); Mean Corpuscular Hemoglobin 30.7 pg (26-34); Mean Corpuscular Volume 92.4 fl (80-100); Mean Platelet Volume 10.4 fl (7.4-10.4); Platelet Count Result 223 k/mm3 (150-375); Red Blood Count 2.51 M/mm3 (4.6-6.20); White Blood Count 5.9 K/mm3 (4.5-10.0)
--- NOTE | 2023-05-05 09:50 | PM.DS ---
DS: Admitting Diagnosis Discharge Date 05/04/2023 Admitting Diagnosis Acute gastrointestinal bleeding hemoglobin initially 11.2 and fell to as low as 7.7 and was 7.9 at discharge. Had some dark stool still during hospitalization. Underwent upper and lower endoscopy 05/03/2023. Unremarkable except for gastric AVM which was cauterized during repeat upper endoscopy on 05/04/2023. Judicial Assistant planned to perform an outpatient camera endoscopy of the small bowel to complete his evaluation. DS: Discharge Diagnosis Discharge Diagnosis (1) Acute GI bleeding: Code(s): K92.2 - Gastrointestinal hemorrhage, unspecified Status: Acute Assessment and Plan: Gastric AVM and gastritis (2) Anemia due to blood loss, acute: Code(s): D62 - Acute posthemorrhagic anemia Status: Acute (3) Symptomatic anemia: Code(s): D64.9 - Anemia, unspecified Status: Acute (4) Anxiety: Code(s): F41.9 - Anxiety disorder, unspecified Status: Acute Assessment and Plan: Continued Xanax DS: Summary Hospital Course Reason for hospitalization: Dark red blood in stools Hospital Course: Admitted to dark red blood in bowel movements. Mild abdominal cramping associated with that. Hemoglobin initially 10.2 and dropped as low as 7.7 prior to discharge when it was 7.9. He had a few dark stools during admission. Abdominal pain resolved. 05/03/2023 underwent EGD and colon. EGD showed gastritis. Colon showed some blood in the cecum. medical scan was negative. 05/04/2023 repeat EGD revealed gastric AVM in the body of the stomach with retroflexion of the scope. This was cauterized. He remained stable with a a regular diet with stable H&H and vital signs and wished to go home. His up and about without difficulty, performing all ADLs. He was cautioned to return to the emergency department if bleeding recurred. Time Spent with Patient Time attestation: Total time spent providing and/or coordinating discharge services: Exam Narrative: HEENT: PERRL, sclerae nonicteric, pharyngeal mucosa pink and intact NECK: No JVD CHEST: Clear to auscultation. Normal effort. HEART: NL S1/S2, regular, no murmur ABDOMEN: BS+, soft, nontender, no mass, no bruits EXTREMITIES: No cyanosis, edema, or clubbing NEUROLOGIC: CN intact and symmetric to inspection. MUSCULOSKELETAL: Tone and strength symmetric. PSYCH: Alert. Oriented to person, place, and time. DS: Data Data Completed and Pending Completed studies during hospitalization: Pending at discharge 05/03/23 13:27 Surgical [PTH] Routine Labs on day of discharge: Labs from last 24 hours 05/05/23 05/05/23 05/05/23 09:05 01:43 01:43 WBC 5.9 RBC 2.51 L Hgb 7.7 L 8.3 L Hct 23.2 L 24.8 L Cancelled MCV 92.4 90.8 MCH 30.7 30.4 MCHC 33.2 33.5 RDW 14.0 14.0 Plt Count 223 224 MPV 10.4 9.9 Immature Gran % (Auto) 1.8 H Neut % (Auto) 66.0 Lymph % (Auto) 24.3 [place] % (Auto) 6.7 Eos % (Auto) 0.7 Baso % (Auto) 0.5 Lymph # (Auto) 1.45 [place] # (Auto) 0.4 Eos # (Auto) 0.0 Baso # (Auto) 0.0 Abs Immat Gran (auto) 0.11 H Absolute Neuts (auto) 3.9 Absolute Nucleated RBC 0.0 Nucleated RBC % 0.0 Sodium 134 L Potassium 3.5 Chloride 106 Carbon Dioxide 24 Anion Gap 4 L BUN 10 Creatinine 1.20 Estim Creat Clear Calc 80 Estimated GFR > 60 Glucose 85 Calcium 7.9 L Magnesium 1.9 Total Bilirubin 0.4 AST 27 ALT 21 Alkaline Phosphatase 47 Total Protein 6.0 L Albumin 3.5 Blood Type Antibody Screen Crossmatch 05/05/23 05/04/23 05/02/23 01:43 20:30 08:18 WBC 6.0 RBC 2.73 L Hgb Cancelled 8.3 L Hct 24.3 L MCV MCH MCHC RDW Plt Count MPV Immature Gran % (Auto) Neut % (Auto) Lymph % (Auto) Edmonson % (Auto) Eos % (Auto) Baso % (Auto) Lymph # (Auto) Edmonson
[2023-05-05 13:19] LABS: Hemoglobin 7.9 g/dL (14.0-18.0)
[2023-05-05 14:00] VITALS: BP 143/86; PULSE 106; RESP 16; TEMP 37.1; O2SAT 100
== END 2023-05-05 14:30 | disposition home or self-care (01) | DRG 378 ==
LOC: ANHED 09:49 → ANH3MEDSUR 10:08
PROVIDERS: Internal Medicine Gastroenterology; Nurse Practitioner; Admitting Provider Family Medicine; Emergency Provider Emergency Medicine; PCP Family Medicine Adolescent Medicine; Visit Provider Internal Medicine
PROC: 0DJ08ZZ Inspection of Upper Intestinal Tract, Via Natural or Artificial Opening Endoscopic (ICD-10-PCS; CPT 43235; principal; 2023-05-03 13:30)
DX: K31.811 Angiodysplasia of stomach and duodenum with bleeding (principal); D62 Acute posthemorrhagic anemia; K29.71 Gastritis, unspecified, with bleeding; K92.2 Gastrointestinal hemorrhage, unspecified; F43.10 Post-traumatic stress disorder, unspecified; F41.9 Anxiety disorder, unspecified; Z87.891 Personal history of nicotine dependence
CPT/HCPCS: 36415; 36430; 78290; 80053; 83735; 84443; 85014; 85018; 85025; 85027; 85610; 85730; 86850; 86900; 86901; 86923; 87081; 88305; 96361; 96374; 99285; A9270; A9512; C9113; G0378; J2405; J2704; J3010; J7030; J7050; J7120; P9016

== ENCOUNTER 2023-05-11 10:15 | Outpatient (CLI) | payer BC, SELFPAY ==
[2023-05-11 10:58] LABS: Basophils Percent Auto 0.5 % (0.2-1.2); Eosinophils Absolute Auto 0.1 K/mm3 (0-0.3); Eosinophils Percent Auto 1.7 % (0-4.4); Hematocrit 25.2 % (42.0-52.0); Hemoglobin 7.9 g/dL (14.0-18.0); Immature Granulocyte Absolute 0.04 K/mm3 (0.00-0.031); Lymphocytes Absolute Auto 0.93 K/mm3 (0.9-3.2); Lymphocytes Percent Auto 22.1 % (18.3-44.2); Mean Corpuscular HGB Conc 31.3 g/dl (32-36); Mean Corpuscular Hemoglobin 29.5 pg (26-34); Monocytes Absolute Auto 0.2 K/mm3 (0.1-0.6); Monocytes Percent Auto 5.2 % (2.6-8.5); Neutrophils Absolute Auto 2.9 K/mm3 (1.3-6.7); Neutrophils Percent Auto 69.5 % (45.5-73.1); Platelet Count Result 338 k/mm3 (150-375); Red Blood Count 2.68 M/mm3 (4.6-6.20); Red Cell Distribution Width 14.4 % (11.5-14.5); White Blood Count 4.2 K/mm3 (4.5-10.0)
[2023-05-11 11:13] LABS: Alanine Aminotransferase 24 U/L (6-50); Albumin Level 4.2 g/dL (3.5-5.1); Alkaline Phosphatase 51 U/L (38-126); Anion Gap 7 mmol/L (8-16); Aspartate Amino Transferase 31 U/L (17-59); Bilirubin,Total 0.3 mg/dL (0.2-1.3); Blood Urea Nitrogen 15 mg/dL (9-20); Calcium 8.7 mg/dL (8.4-10.2); Carbon Dioxide 28 mmol/L (22-30); Chloride 105 mmol/L (98-107); Estimated Glomerular Filt Rate > 60; Glucose 113 mg/dL (65-110); Sodium 140 mmol/L (137-145)
== END 2023-05-11 10:16 | disposition home or self-care (01) ==
LOC: ANHLAB 10:17
PROVIDERS: PCP Family Medicine Adolescent Medicine; Visit Provider Nurse Practitioner Family
DX: D62 Acute posthemorrhagic anemia (principal); K92.2 Gastrointestinal hemorrhage, unspecified
CPT/HCPCS: 36415; 80053; 85025

== ENCOUNTER 2023-05-15 12:39 | Outpatient (CLI) | payer BC, SELFPAY ==
[2023-05-15 13:15] LABS: Hematocrit 29.5 % (42.0-52.0); Hemoglobin 9.2 g/dL (14.0-18.0); Mean Corpuscular HGB Conc 31.2 g/dl (32-36); Mean Corpuscular Hemoglobin 29.4 pg (26-34); Mean Corpuscular Volume 94.2 fl (80-100); Mean Platelet Volume 10.1 fl (7.4-10.4); Platelet Count Result 368 k/mm3 (150-375); Red Blood Count 3.13 M/mm3 (4.6-6.20); Red Cell Distribution Width 15.4 % (11.5-14.5); White Blood Count 5.7 K/mm3 (4.5-10.0)
== END 2023-05-15 12:40 | disposition home or self-care (01) ==
LOC: ANHLAB 12:39
PROVIDERS: PCP Family Medicine Adolescent Medicine; Visit Provider Nurse Practitioner Family
DX: K92.2 Gastrointestinal hemorrhage, unspecified (principal)
CPT/HCPCS: 36415; 85027

== ENCOUNTER 2023-06-06 05:32 | Outpatient (CLI) | payer BC, SELFPAY ==
[2023-06-06] MEDS: SIMETHICONE ORAL SUSPENSION 20 MG/0.3 ML 30 ML BOTTLE 1.2 ML PO (06:30)
--- NOTE | 2023-06-06 06:48 | SUR.OPER ---
Patient brought to GI Lab. Instructions for patient undergoing Capsule Endoscopy reviewed with patient. Consent form signed. Sensor array applied to patient's abdomen and connected to recorder. Patient swallowed capsule with 16 ozs of water infused with Simethicone. Patient instructed they may have clear liquids at 0830 this AM and eat or drink at 1030 this AM. Patient instructed to return to GI Lab at 1500 this afternoon for removal of recording device and to call [phone] or to return to the hospital if any nausea and vomiting or abdominal pain is experienced.
== END 2023-06-06 05:33 | disposition home or self-care (01) ==
PROVIDERS: PCP Family Medicine Adolescent Medicine; Visit Provider Internal Medicine Gastroenterology
PROC: 0DJ07ZZ Inspection of Upper Intestinal Tract, Via Natural or Artificial Opening (ICD-10-PCS; CPT 91110; principal; 2023-06-06 07:00)
DX: Z01.818 Encounter for other preprocedural examination (principal)
CPT/HCPCS: 91110

== ENCOUNTER 2023-06-12 16:10 | Outpatient (CLI) | payer BC, SELFPAY ==
[2023-06-12 16:50] LABS: Basophils Absolute Auto 0.1 K/mm3 (0.0-0.1); Basophils Percent Auto 1.1 % (0.2-1.2); Eosinophils Absolute Auto 0.1 K/mm3 (0-0.3); Eosinophils Percent Auto 1.6 % (0-4.4); Hematocrit 36.4 % (42.0-52.0); Hemoglobin 11.6 g/dL (14.0-18.0); Immature Granulocyte Absolute 0.02 K/mm3 (0.00-0.031); Immature Granulocyte Percent A 0.4 % (0-0.5); Lymphocytes Absolute Auto 1.49 K/mm3 (0.9-3.2); Mean Corpuscular HGB Conc 31.9 g/dl (32-36); Mean Platelet Volume 9.8 fl (7.4-10.4); Monocytes Absolute Auto 0.5 K/mm3 (0.1-0.6); Monocytes Percent Auto 9.2 % (2.6-8.5); Neutrophils Absolute Auto 3.4 K/mm3 (1.3-6.7); Neutrophils Percent Auto 60.7 % (45.5-73.1); Platelet Count Result 306 k/mm3 (150-375); Red Cell Distribution Width 12.6 % (11.5-14.5); White Blood Count 5.5 K/mm3 (4.5-10.0)
== END 2023-06-12 16:11 | disposition home or self-care (01) ==
LOC: ANHLAB 16:11
PROVIDERS: PCP Family Medicine Adolescent Medicine; Visit Provider Internal Medicine Gastroenterology
DX: D62 Acute posthemorrhagic anemia (principal)
CPT/HCPCS: 36415; 85025

== ENCOUNTER 2023-07-25 17:09 | Outpatient (CLI) | payer BC, SELFPAY ==
[2023-07-25 18:00] LABS: Basophils Percent Auto 0.5 % (0.2-1.2); Eosinophils Percent Auto 0.2 % (0-4.4); Hematocrit 40.5 % (42.0-52.0); Hemoglobin 13.3 g/dL (14.0-18.0); Immature Granulocyte Absolute 0.01 K/mm3 (0.00-0.031); Immature Granulocyte Percent A 0.1 % (0-0.5); Lymphocytes Absolute Auto 1.25 K/mm3 (0.9-3.2); Lymphocytes Percent Auto 15.5 % (18.3-44.2); Mean Corpuscular HGB Conc 32.8 g/dl (32-36); Mean Corpuscular Hemoglobin 28.5 pg (26-34); Mean Corpuscular Volume 86.7 fl (80-100); Mean Platelet Volume 10.1 fl (7.4-10.4); Monocytes Absolute Auto 0.3 K/mm3 (0.1-0.6); Neutrophils Absolute Auto 6.4 K/mm3 (1.3-6.7); Neutrophils Percent Auto 79.7 % (45.5-73.1); Platelet Count Result 304 k/mm3 (150-375); Red Blood Count 4.67 M/mm3 (4.6-6.20); Red Cell Distribution Width 12.7 % (11.5-14.5)
[2023-07-25 18:12] LABS: Alanine Aminotransferase 25 U/L (6-50); Albumin Level 4.7 g/dL (3.5-5.1); Alkaline Phosphatase 83 U/L (38-126); Anion Gap 12 mmol/L (8-16); Aspartate Amino Transferase 27 U/L (17-59); Bilirubin,Total 0.6 mg/dL (0.2-1.3); Blood Urea Nitrogen 13 mg/dL (9-20); Calcium 9.3 mg/dL (8.4-10.2); Carbon Dioxide 26 mmol/L (22-30); Chloride 101 mmol/L (98-107); Estimated Glomerular Filt Rate > 60; Glucose 90 mg/dL (65-110); Sodium 139 mmol/L (137-145)
== END 2023-07-25 17:10 | disposition home or self-care (01) ==
LOC: ANHLAB 17:10
PROVIDERS: PCP Family Medicine Adolescent Medicine; Visit Provider Nurse Practitioner Family
DX: D62 Acute posthemorrhagic anemia (principal)
CPT/HCPCS: 36415; 80053; 85025

== ENCOUNTER → 2023-08-03 07:39 | Outpatient (CLI) | payer BC, SELFPAY ==
--- NOTE | ~2023-08-03 | US_ITS ---
EXAMINATION: US abdomen limited DATE: 08/03/2023 07:57 INDICATION: Postprandial abdominal pain TECHNIQUE: Multiple grayscale and Doppler ultrasound images of the abdomen were obtained. COMPARISON: CT, 08/16/2021 FINDINGS: Bowel gas obscures visualization of the pancreas. The visualized portions of the pancreas a re unremarkable. There is focal steatosis of the liver adjacent to the falciform ligament. The liver is otherwise normal with normal echogenicity and echotexture. No surface nodularity. Normal hepatopet al flow in the main portal vein. The gallbladder is normal with no abnormal wall thickening, perichol ecystic fluid or stones. The normal common bile duct measures 3 mm. There was no sonographic Fraire s ign. IMPRESSION: 1. No sonographic correlate for the patient's symptoms. Reviewed, dictated and finalized at location F. UTER OPERATIONS MANAGER
== END ==
PROVIDERS: PCP Nurse Practitioner Family; Visit Provider Nurse Practitioner Family
DX: R10.13 Epigastric pain (principal)
CPT/HCPCS: 76705

== ENCOUNTER 2025-07-28 08:40 | Emergency (ER) | payer BC, SELFPAY ==
[2025-07-28 08:51] VITALS: BP 128/92; PULSE 78; RESP 18; TEMP 36.6; O2SAT 100
--- NOTE | 2025-07-28 09:16 | ED.UPPEXIN ---
HPI - Extremity Injury (Upper) General Chief Complaint: Extremity Injury, Upper Stated Complaint: Right Hand Finger Pain Time Seen by Provider: 07/28/25 09:31 Source: patient and RN notes reviewed Mode of arrival: ambulatory Limitations: no limitations History of Present Illness HPI narrative: 34-year-old male presents with concern for injury to the 2nd digit of right hand. Reports on Sunday he smashed the finger while handling a tire. He reports it moves normally but it feels painful and has pressure and the nail. He reports he has been using ice and taking Tylenol. He denies decreased strength, sensation, range of motion MD complaint: injury to: right and finger Related Data Allergies Allergy/AdvReac Type Severity Reaction Status Date / Time doxycycline Allergy Mild acid reflux Verified 11/19/23 08:17 Review of Systems Review of Systems: CONSTITUTIONAL: Denies malaise, chills, sweats, or fever. CARDIOVASCULAR: Denies chest pain, palpitations, or edema. RESPIRATORY: Denies cough or dyspnea. SKIN: Denies rash or itching. Reports discoloration of the nail bed of the 2nd digit of the right hand MUSCULOSKELETAL: Reports pain, swelling, pressure of the distal 2nd digit of the right hand NEUROLOGIC: Denies numbness, weakness All systems reviewed & are unremarkable except as noted in HPI and below PMFSH Past Medical History Medical History (Updated 07/28/25 @ 09:26 by Jana Zhou APRN) PTSD (post-traumatic stress disorder) History of fracture of clavicle COVID Surgical History Surgical History No history of previous surgery Family History Family History Grandparent Diabetes mellitus Cerebrovascular accident Father , Due to Covid Pneumonia Parkinson disease Pneumonia due to COVID-19 virus Social History Social History Years smoked: 1 Smoking status: Former smoker Second hand tobacco smoke exposure: No Alcohol intake: never Substance use: former Substance use type: marijuana Other substance usage details: on a rare occassion Last use: 04/23/2023 Lack of Transportation: No Lack of Food: Never True Current Housing: I Have Housing Concerned About Future Housing: No Difficulty Paying Gas/Electric Bills: No Difficulty Paying for Meds: No Currently Unemployed: No Education: High School Diploma/GED Difficulty w/ Childcare or Family Care: No Living arrangements: with family Occupation/Education: occupation Gender identity (if verbalized by the patient): Male Sexual Orientation (if Verbalized by the Patient): Straight or Heterosexual Spiritual care concerns: No Agree to blood products: Yes Comments At time of signature, agree with nursing past medical, surgical, social and family history. There is no relevant family history pertinent to the presenting complaint Exam Narrative: GENERAL: Well-appearing, well-nourished, and in no acute distress. HEAD: Normocephalic EYES: PERRLA, conjunctivae clear NECK: Supple. CHEST: Speaks in full sentences. No respiratory distress. HEART: Regular rate and rhythm. Normal and equal peripheral pulses. EXTREMITIES: 2nd digit of right hand has normal strength and sensation. 5/5 strength with digit flexion, extension. Range of motion normal. No clubbing, cyanosis. Mild distal tenderness and edema noted. Skin intact. Normal digital cascade with flexion of fingers, median, ulnar and radial nerve intact. Normal sensation of each side of finger. Can perform 'okay' sign, 'cross over finger test of index and middle fingers' and 'thumbs up' sign. No scissoring. Normal thumb opposition. Good capillary refill and radial pulse. Distal capillary refill less than 3 seconds. Patient is right/left hand dominant SKIN: Warn, dry, intact, pink. Subungual hematoma noted to the 2nd digit of the right hand NEURO: Alert and oriented x3. PSYCH: Normal mood and affect Course Course Emergency Course: Patient is aware of diagnosis, understands and agrees to treatment plan. Anticipatory guidance given. Patient agrees to follow-up as directed and is aware of reasons to seek care at the emergency department. Portions of this record may have been created with voice recognition software Level of Care: Express Care Visit Vital Signs Vital signs: Vital Signs Temperature 97.8 F 07/28/25 08:51 Pulse Rate 78 07/28/25 08:51 Respiratory Rate 18 07/28/25 08:51 Blood Pressure 128/92 H 07/28/25 08:51 Pulse Oximetry 100 07/28/25 08:51 Oxygen Delivery Room Air 07/28/25 08:51 Temperature 97.8 F 07/28/25 08:51 Pulse Rate 78 07/28/25 08:51 Respiratory Rate 18 07/28/25 08:51 Blood Pressure 128/92 H 07/28/25 08:51 Pulse Oximetry 100 07/28/25 08:51 Oxygen Delivery Room Air 07/28/25 08:51 Reviewed. Procedures Nail Trephination Nail Trephination #1: Nail Trephination Date: 07/28/25 Nail Trephination Time: 09:24 Time out: Yes Location (finger): right and index Sterile prep: other (alcohol) Method of drainage: nail cautery Procedure successful: Yes Patient tolerated procedure: well MDM - Extremity Injury (Upper) MDM Narrative Medical decision making narrative: I evaluated this patient in the [facility] care. History is obtained from patient who is an independent historian and physical exam was performed.? Available medical records were reviewed. ? Exam findings and relevant testing show no acute concerns or changes; patient is non-toxic appearing and is in no distress. ? Differential diagnosis and treatment plan were discussed with the patient. Patient agrees with discussion and after shared medical decision making agrees with plan of care. All questions were answered to the patient's satisfaction. Patient is appropriate for outpatient treatment and follow-up. Critical Care Time Critical Care Time Critical Care Time: No Discharge Plan Discharge Clinical Impression: Subungual hematoma Patient Disposition: Home Condition: Stable Instructions: Subungual Hematoma (ED) Additional Instructions: Soak your nail: Soak your finger in a mixture of equal parts vinegar and water 3 or 4 times each day. This will help decrease inflammation. Apply a warm compress: Soak a washcloth in warm water and place it on your finger. This will help decrease inflammation. Elevate: Raise your finger above the level of your heart as often as you can. This will help decrease swelling and pain. Prop your finger on pillows or blankets to keep it elevated comfortably. Please follow-up with your primary care doctor in the next 1-2 days. If you cannot follow-up with your primary care doctor please go to the ED for any urgent issues. 2) If you have any worsening of symptoms or any other concerns please go to the ED immediately. 3) Please take medications as prescribed andcontinue taking your home medications as usual. Patient Language: Bruneian Prescriptions: No Action alprazolam 0.5 mg tablet 0.5 mg PO TID PRN (Reason: anxiety) Qty: 30 0RF Follow-up/Referrals: FERNANDA,TAMIR CARRION [Primary Care Provider] Stand Alone Forms: Work/School Release IP Time of Disposition: 09:25
== END 2025-07-28 09:31 | disposition home or self-care (01) ==
PROVIDERS: Emergency Provider Nurse Practitioner; PCP Nurse Practitioner Family
DX: S60.121A Contusion of right index finger with damage to nail, initial encounter (principal); X58.XXXA Exposure to other specified factors, initial encounter; Z87.891 Personal history of nicotine dependence
CPT/HCPCS: 11740; 99212; G0463